=== PATIENT | female | born 1985 | race Caucasian/White ===

== ENCOUNTER 2018-11-21 21:11 | Emergency (ER) | payer BC, OTHER ==
[~2018-11-21] VITALS: Ht 172.7 cm; Wt 150.0 kg
[2018-11-21] MEDS ORDERED: VYVA1CAP PO (21:21)
[2018-11-21] MEDS ORDERED: [UNRECOGNIZED DRUG - OTHER] PO (21:21)
[2018-11-21] MEDS ORDERED: ADACEL/BOOSTRIX VACCINE (DIPHTH/PERTUSS/ACELL/TETANUS)0.5ML SYR (90715) IM ONE (22:45)
[2018-11-21] MEDS ORDERED: RITA5TAB PO (23:01)
[2018-11-21 23:12] VITALS: BP 175/85
== END 2018-11-21 23:14 | disposition home or self-care (01) ==
LOC: M ED 21:11
DX: S80.811A Abrasion, right lower leg, initial encounter (principal); S80.812A Abrasion, left lower leg, initial encounter; W22.09XA Striking against other stationary object, initial encounter; Y92.096 Garden or yard of other non-institutional residence as the place of occurrence of the external cause; Y93.K9 Activity, other involving animal care; Y99.8 Other external cause status; F90.9 Attention-deficit hyperactivity disorder, unspecified type; Z76.0 Encounter for issue of repeat prescription; Z88.1 Allergy status to other antibiotic agents; Z91.018 Allergy to other foods; Z79.899 Other long term (current) drug therapy; Z23 Encounter for immunization